=== PATIENT | male | born 1985 | race Caucasian/White ===

== ENCOUNTER → 2018-02-05 | Outpatient (CLI) | payer BC ==
--- NOTE | 2018-02-05 08:44 | RAD ---
EXAM DESCRIPTION: Clavicle,Left CLINICAL HISTORY: 32 years Male, PAIN IN LEFT SHOULDER COMPARISON: None. TECHNIQUE/FINDINGS: AP and lordotic images of the left clavicle. Comminuted fracture of the mid clavicle with the largest medial component superior to the distal component. Small bony fragments abutting the fracture site and overriding larger fragments. No glenohumeral dislocation. No sternoclavicular dislocation. IMPRESSION: Comminuted fracture mid left clavicle with medial component overriding the lateral component and small bone fragments. No dislocation. Electronically signed by: Zak Mondragon MD 02/05/2018 8:43 AM CDT
== END ==
LOC: RAD 08:06
PROVIDERS: ATTEND Orthopaedic Surgery
DX: S42.002A Fracture of unspecified part of left clavicle, initial encounter for closed fracture (principal)

== ENCOUNTER 2018-02-06 05:32 | Day surgery (SDC) | payer BC ==
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
--- NOTE | 2018-02-06 07:52 | RAD ---
EXAM DESCRIPTION: Chest,2 Views CLINICAL HISTORY: pre op left clavicular fracture on x-ray February 05, 2018 COMPARISON: None TECHNIQUE: PA/lateral FINDINGS: There is no acute appearing cardiac or pulmonary abnormality. Heart size is normal with normal pulmonary vascularity. No pleural effusion or pneumothorax. Lungs are clear with no consolidating infiltrate. Left clavicular fracture is seen with overlap of fragments approximately 3.3 cm. Fracture is near the junction of the middle and peripheral thirds. Lateral view shows intact sternum and T-spine. The lateral view is limited with one arm at the side. IMPRESSION: Left clavicular fracture. Clear lungs. Electronically signed by: Camden Arce MD 02/06/2018 7:51 AM CDT
[2018-02-06] MEDS ORDERED: DEXAMETHASONE INJ 10 MG/ML VIAL IV ONE (10:00)
[2018-02-06] MEDS ORDERED: ONDANSETRON INJ 4 MG/2 ML VIAL IV ONE (10:00)
[2018-02-06] MEDS ORDERED: PHENYLEPHRINE INJ 1ML 10 MG/ML VIAL IV ONE (10:00)
[2018-02-06] MEDS ORDERED: PROPOFOL 200 MG/20 ML VIAL IV ONE (10:00)
[2018-02-06] MEDS ORDERED: VECURONIUM BROMIDE 10 MG VIAL IV ONE (10:00)
[2018-02-06] MEDS ORDERED: KETOROLAC TROMETHAMINE INJ 30 MG/ML VIAL IV ONE (10:00)
[2018-02-06] MEDS ORDERED: WATER FOR INJECTION, STERILE 100 ML VIAL INJ ONE (10:00)
[2018-02-06] MEDS ORDERED: BUPIVACAINE LIPOSOME 13.3 MG/ML VIAL INJ ONE (10:25)
[2018-02-06] MEDS ORDERED: BUPIVACAINE 0.5% 30 ML VIAL INJ ONE (10:25)
[2018-02-06] MEDS ORDERED: MIDAZOLAM INJ 2 MG/2 ML VIAL ONE (10:32)
[2018-02-06] MEDS ORDERED: LACTATED RINGERS 1,000 ML ONE (10:58)
[2018-02-06] MEDS ORDERED: SODIUM CHL 0.9% 100ML MINI-BAG 100 ML IVPB ONE (10:58)
[2018-02-06] MEDS ORDERED: ceFAZolin SODIUM 1 GM VIAL ONE ×2 (10:59→11:48)
[2018-02-06] MEDS ORDERED: VANCOMYCIN HCL INJ 1,000 MG VIAL IVPB ONE (11:33)
[2018-02-06] MEDS ORDERED: SODIUM CHLORIDE 0.9% 250ML 250 ML ONE (11:34)
[2018-02-06] MEDS ORDERED: CLINDAMYCIN IV 900MG 50 ML IVPB ONE (11:35)
[2018-02-06] MEDS ORDERED: fentaNYL CITRATE INJ 50 MCG/ML AMP ONE ×2 (11:43→11:50)
[2018-02-06] MEDS ORDERED: SUCCINYLCHOLINE CHLORIDE 200 MG/10 ML VIAL ONE (11:49)
[2018-02-06] MEDS ORDERED: KETAMINE HCL 100 MG/ML VIAL ONE (11:49)
[2018-02-06] MEDS: VANCOMYCIN HCL INJ 1,000 MG VIAL IVPB ONE ×2 (13:29→14:37)
[2018-02-06] MEDS: ceFAZolin SODIUM 1 GM VIAL ONE ×2 (13:29→14:37)
[2018-02-06] MEDS ORDERED: BUPIVACAINE 0.25% W/EPI 50 ML VIAL INJ ONE (14:28)
[2018-02-06] MEDS ORDERED: LEVALBUTEROL NEBS 1.25 MG/3 ML VIAL NEB ONE (15:15)
[2018-02-06 15:48] VITALS: TEMP 97.6
[2018-02-06] MEDS ORDERED: MORPHINE SULFATE INJ 10 MG/ML VIAL ONE (15:50)
[2018-02-06] MEDS ORDERED: HYDROcodone 5MG/APAP 325MG 1 EA TAB ONE (16:12)
[2018-02-06 16:21] VITALS: BP 139/75; O2SAT 96
--- NOTE | 2018-02-06 16:56 | RAD ---
EXAM DESCRIPTION: Clavicle,Left CLINICAL HISTORY: 32 years Male POST OP ORIF COMPARISON: 02/05/2018. TECHNIQUE: LEFT clavicle, 2 views FINDINGS: ORIF of the left clavicle with sideplate and screws. Subcutaneous emphysema is noted. There is anatomic alignment. The AC joint appears intact. IMPRESSION: ORIF left clavicular fracture with anatomic alignment Electronically signed by: Blessing Saxena MD 02/06/2018 4:55 PM CDT
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
== END 2018-02-06 17:15 | disposition home or self-care (01) ==
LOC: AMB 05:32
PROVIDERS: ATTEND Orthopaedic Surgery
DX: S42.022A Displaced fracture of shaft of left clavicle, initial encounter for closed fracture (principal); F17.210 Nicotine dependence, cigarettes, uncomplicated; V89.2XXA Person injured in unspecified motor-vehicle accident, traffic, initial encounter
CPT/HCPCS: 00450; 23515; 36415; 36416; 71046; 73000; 76000; 80048; 81001; 85025; 87070; 93005; A4216; J0330; J0690; J1100; J1885; J2250; J2270; J2405; J3010; J3370; J3490; J7050; J7120; J7614

== ENCOUNTER → 2018-03-01 | Outpatient (CLI) | payer BC ==
--- NOTE | 2018-03-01 15:59 | RAD ---
EXAM DESCRIPTION: Clavicle,Left x-ray two views CLINICAL HISTORY: 32 years Male, FRACTURE OF UNSPECIFIED PART OF LT CLAVICLE COMPARISON: Previous study February 06, 2018 FINDINGS: Plate and screws are seen in the left clavicle with anatomic alignment and hypodensity consistent with periosteal new bone formation and callus formation of healing fracture. No change in alignment compared to the previous study. AC joint appears intact. The fragments are being incorporated posteroinferiorly. IMPRESSION: Healing left clavicular fracture with plate and screws in place. Electronically signed by: Camden Arce MD 03/01/2018 3:58 PM CDT
== END ==
LOC: RAD 10:07
PROVIDERS: ATTEND Orthopaedic Surgery
DX: S42.002D Fracture of unspecified part of left clavicle, subsequent encounter for fracture with routine healing (principal)

== ENCOUNTER → 2019-07-18 | Outpatient (CLI) | payer BC ==
--- NOTE | 2019-07-19 13:51 | RAD ---
EXAM DESCRIPTION: RADIOGRAPHS OF THE left CLAVICLE. CLINICAL HISTORY: CLAVICLE PAIN COMPARISON: 2 views clavicle February 2018 TECHNIQUE: AP and lordotic views of the left clavicle. ORIF of prior mid left clavicle fracture. An oblique radiolucent line between the AP screw of the ORIF and the lateral most of the medial segment of plate screws visualized. Also inferior fragment of the clavicle at the same site with radiolucent interfaces to the proximal and distal fracture component. Plate is intact. Normal bone density around the screws. No abnormal radiodense objects in the soft tissues. IMPRESSION: Nonhealed fracture of the mid left clavicle. Hardware is intact with no hardware complication. Consider triple phase radionuclide bone scan if clinically indicated. Electronically signed by: Zak Mondragon MD 07/19/2019 1:50 PM [facility]
== END ==
LOC: RAD 08:14
PROVIDERS: ATTEND Orthopaedic Surgery
DX: S42.002A Fracture of unspecified part of left clavicle, initial encounter for closed fracture (principal); Z98.890 Other specified postprocedural states

== ENCOUNTER 2019-08-12 05:39 | Day surgery (SDC) | payer BC ==
--- NOTE | 2019-08-07 16:08 | RAD ---
EXAM DESCRIPTION: Chest,2 Views CLINICAL HISTORY: PREOP EXAM COMPARISON: Previous study February 06, 2018 TECHNIQUE: PA/lateral FINDINGS: Plate and screws in the left clavicle. Heart size is normal with normal pulmonary vascularity. No pleural effusion or pneumothorax. Lungs are clear with no consolidating infiltrate. Lateral view shows intact sternum and T-spine. IMPRESSION: No acute process is identified in the chest. Electronically signed by: Camden Arce MD 08/07/2019 4:06 PM [employer] SCREEN [employer]IC[employer]
[2019-08-12] MEDS ORDERED: SODIUM CHL 0.9% 100ML MINI-BAG 100 ML IVPB ONE (06:07)
[2019-08-12] MEDS ORDERED: LACTATED RINGERS 1,000 ML ONE (06:07)
[2019-08-12] MEDS ORDERED: ceFAZolin SODIUM 1 GM VIAL ONE (06:07)
[2019-08-12] MEDS ORDERED: MIDAZOLAM INJ 5 MG/5 ML VIAL ONE (07:59)
[2019-08-12] MEDS ORDERED: ACETAMINOPHEN IV 1000MG 100 ML ONE (08:07)
[2019-08-12] MEDS ORDERED: KETAMINE HCL 100 MG/ML VIAL ONE (08:08)
[2019-08-12] MEDS ORDERED: HYDROmorphone HCL INJ 2 MG/ML VIAL ONE (08:08)
[2019-08-12] MEDS ORDERED: BUPIVACAINE LIPOSOME 13.3 MG/ML VIAL INJ ONE (08:35)
[2019-08-12] MEDS ORDERED: SODIUM CHLORIDE 0.9% 250ML 250 ML ONE (09:07)
[2019-08-12] MEDS ORDERED: VANCOMYCIN HCL INJ 1,000 MG VIAL IVPB ONE (09:07)
[2019-08-12] MEDS: BUPIVACAINE 0.5% 30 ML VIAL INJ ONE ×2 (09:30→09:57)
[2019-08-12] MEDS: BUPIVACAINE LIPOSOME 13.3 MG/ML VIAL INJ ONE ×2 (09:31→09:57)
[2019-08-12] MEDS: ceFAZolin SODIUM 1 GM VIAL ONE ×2 (09:31→10:00)
[2019-08-12] MEDS: VANCOMYCIN HCL INJ 1,000 MG VIAL IVPB ONE ×2 (09:31→10:00)
[2019-08-12] MEDS ORDERED: raNITIdine HCL INJ 25 MG/ML VIAL IV ONE (10:00)
[2019-08-12] MEDS ORDERED: PROPOFOL 200 MG/20 ML VIAL IV ONE (10:00)
[2019-08-12] MEDS ORDERED: KETOROLAC TROMETHAMINE INJ 30 MG/ML VIAL IV ONE (10:00)
[2019-08-12] MEDS ORDERED: DEXAMETHASONE INJ 10 MG/ML VIAL IV ONE (10:00)
[2019-08-12] MEDS ORDERED: SODIUM CHLORIDE 0.9% 50 ML VIAL INJ ONE (10:00)
[2019-08-12] MEDS ORDERED: ePHEDrine SULF 50 MG/ML IV ONE (10:00)
[2019-08-12] MEDS ORDERED: LIDOCAINE 1% 10 ML VIAL INJ ONE (10:00)
[2019-08-12] MEDS ORDERED: MAGNESIUM SULFATE INJ 1 GM/2 ML VIAL IVPB ONE (10:00)
--- NOTE | 2019-08-12 11:41 | RAD ---
EXAM DESCRIPTION: Shoulder,Left 2 or More Views CLINICAL HISTORY: POST SURGICAL OF HARDWARE REMOVAL COMPARISON: None Available. TECHNIQUE: Two views of the left clavicle . IMPRESSION: X-ray 2 view left clavicle shows that the fixation hardware has been removed. There is excellent alignment of the clavicle. No postop complication. Electronically signed by: Vadim Barba MD 08/12/2019 11:39 AM CDT
[2019-08-12 12:58] VITALS: TEMP 97.1
[2019-08-12 13:10] VITALS: BP 112/68; O2SAT 97
--- NOTE | 2019-08-13 10:22 | OP ---
DATE OF PROCEDURE: 08/12/19 PREOPERATIVE DIAGNOSIS: 1. Symptomatic and exposed hardware of the left clavicle. POSTOPERATIVE DIAGNOSIS: 1. Symptomatic and exposed hardware of the left clavicle. PROCEDURE: 1. Removal of hardware. 2. I&D of wound. SURGEON: Denny Smiley MD BI TRI OPERATOR: Zak Rangel CST, SA-C ANESTHESIA: General anesthesia. COMPLICATIONS: None. FINDINGS: Exposed hardware at the midshaft of the clavicle. Good bridging bone across the fracture site. INDICATION: Denny has a history a history of clavicle fracture which was fixed surgically by me about 18 months ago. He appeared to heal up from this and he was discharged from care. He is a heavy smoker and extremely thin. As such, he had symptomatic hardware over the superior aspect of the clavicle. He presented with about a 1.5 cm wound over the central portion of the clavicle where the skin had worn down and the hardware was exposed. We talked about the options available to him and I told him I would not do anything until he quit smoking. He spent several weeks free of tobacco and therefore we decided to proceed with hardware removal. After discussing the risks, benefits and alternatives to operative therapy, he gave informed consent. PROCEDURE: The patient was brought to the Operating Room and placed in supine position. General anesthesia was induced and the shoulder and arm were sterilely prepped and draped. The incision was made along the line of his previous scar and the tissue that was overlying the wound was debrided. Dissection was carried down to the plate while trying to leave as much of the clavicle covered by periosteum as possible. The plate was removed in its entirety as was compression screw that had been placed previously from anterior to posterior. Once that had been done, the screw holes were debrided. The wound was very thoroughly irrigated and reapproximated with interrupted and running subcuticular stitches. It was noted at the time that he had good bleeding skin edges which favor healing in this situation. After closure, sterile dressings were placed. The patient was awoken from anesthesia and taken to Recovery. POSTOPERATIVE PLAN: I have really stressed to Denny the importance of refraining from smoking at least until we have full healing of this surgical wound. He understood that there could be breakdown if he had any problems with healing. He is going to followup with us in two days and further discuss that. #[id number] [facility]
== END 2019-08-12 12:20 | disposition home or self-care (01) ==
LOC: AMB 05:39
PROVIDERS: ATTEND Orthopaedic Surgery
DX: T84.89XA Other specified complication of internal orthopedic prosthetic devices, implants and grafts, initial encounter (principal); F17.210 Nicotine dependence, cigarettes, uncomplicated
CPT/HCPCS: 00450; 20680; 71046; 73030; 80048; 80307; 85025; 93005; A4216; J0690; J1100; J1170; J1885; J2250; J2780; J3370; J3475; J3490; J7050; J7120